=== PATIENT | male | born 1970 | race Caucasian/White ===

== ENCOUNTER 2022-07-12 05:49 | Day surgery (SDC) | payer BC, OTHER ==
[~2022-07-12 05:49] MED LIST: Sodium Chloride 0.9% 10 ML Syringe FLUSH PRN; Sodium Chloride 0.9% 10 ML Syringe FLUSH SCH
[2022-07-12] MEDS ORDERED: Dextrose 5%-0.45% NaCl 1,000 ML IV SCH (06:00)
[2022-07-12] MEDS: Dextrose 5%-0.45% NaCl 1,000 ML IV SCH ×2 (06:20→07:47)
[2022-07-12] MEDS ORDERED: Midazolam 1 MG/ML 2 ML SDV ONE (06:59)
[2022-07-12] MEDS ORDERED: fentaNYL 100 MCG/2 ML SDV ONE (07:00)
[2022-07-12] MEDS ORDERED: Midazolam 1 MG/ML 2 ML SDV IV ONE ×6 (07:06→07:12)
[2022-07-12] MEDS ORDERED: fentaNYL 100 MCG/2 ML SDV IV ONE ×3 (07:06→07:13)
== END 2022-07-12 08:35 | disposition home or self-care (01) ==
LOC: DL.ENDO 05:49
PROVIDERS: ATTEND Internal Medicine Gastroenterology
DX: K57.30 Diverticulosis of large intestine without perforation or abscess without bleeding (principal); E66.09 Other obesity due to excess calories; Z83.71 Family history of colonic polyps; Z80.0 Family history of malignant neoplasm of digestive organs; Z98.890 Other specified postprocedural states; Z68.32 Body mass index [BMI] 32.0-32.9, adult
CPT/HCPCS: 45378; J2250; J3010; J7042

== ENCOUNTER 2023-09-26 18:07 | Emergency (ER) | payer OTHER ==
[2023-09-26] MEDS: Aspirin 81 MG Tab.Chew PO ONE (18:25)
[2023-09-26] MEDS: Nitroglycerin 0.4 MG Tab.SL SL PRN (18:27)
[2023-09-26 18:30] LABS: BASOPHILS PERCENT AUTO 0.4 % (0.0-1.0); HEMATOCRIT 44.2 % (40.0-54.0); HEMOGLOBIN 15.3 g/dL (14.0-18.0); LYMPHOCYTES PERCENT AUTO 32.3 % (20.5-50.1); MEAN CORPUSCULAR HEMOGLOBIN 30.3 pg (27.0-34.0); MEAN CORPUSCULAR HGB CONC 34.6 g/dL (33.0-35.0); MEAN CORPUSCULAR VOLUME 87.5 fL (80-100); MONOCYTES PERCENT AUTO 9.8 % (2-8); NEUTROPHILS PERCENT AUTO 55.5 % (42.2-75.2); PLATELET COUNT,PLT 208 10^3/uL (150-450); RED BLOOD CELL COUNT 5.05 10^6/uL (4.6-6.2); WHITE BLOOD CELL COUNT,WBC 8.1 10^3/uL (5.0-10.0)
[2023-09-26] MEDS: Sodium Chloride 0.9% 10 ML Syringe FLUSH PRN (18:30)
[2023-09-26] MEDS: Nitroglycerin 0.4 MG Tab.SL ONE (18:32)
[2023-09-26 18:39] LABS: A/G RATIO 1.1; ALANINE AMINOTRANSFERASE,ALT 19 U/L (16-63); ALBUMIN 4.1 g/dL (3.4-5.0); ALKALINE PHOSPHATASE 96 U/L (46-116); ANION GAP 11.7 mEq/L (7-13); ASPARTATE AMNIOTRANSFERASE,AST 8 U/L (15-37); BILIRUBIN TOTAL 0.4 mg/dL (0.2-1.0); BLOOD UREA NITROGEN,BUN 23 mg/dL (7-18); CARBON DIOXIDE,CO2 29 mmol/L (21-32); CHLORIDE,CL 105 mmol/L (98-107); CREATININE 1.44 mg/dL (0.70-1.30); GLUCOSE RANDOM 108 mg/dL (70-99); LIPASE 231 U/L (16-77); POTASSIUM,K 3.7 mmol/L (3.5-5.1); PROTEIN TOTAL,TP 7.9 g/dL (6.4-8.2); SODIUM,NA 142 mmol/L (136-145)
[2023-09-26 18:43] LABS: C-REACTIVE PROTEIN < 0.50 ng/dL (<=0.50); EST CRCL DRUG DOSING (CG) 64.64 mL/min; ESTIMATED GFR 59 mL/min (>=60)
[2023-09-26] MEDS: GI Cocktail Oral Solution 30 ML PO ONE (19:42)
== END 2023-09-26 21:05 | disposition home or self-care (01) ==
LOC: DL.ED 18:07
DX: R07.89 Other chest pain (principal); K21.9 Gastro-esophageal reflux disease without esophagitis; R74.8 Abnormal levels of other serum enzymes; Z90.49 Acquired absence of other specified parts of digestive tract; Z91.048 Other nonmedicinal substance allergy status
CPT/HCPCS: 36415; 71045; 80053; 82947; 83690; 84484; 85025; 85379; 86140; 93005; 93010; 99284; 99285; A9270; J3490